=== PATIENT | male | born 1965 | race African-American/Black ===

== ENCOUNTER 2017-02-17 20:27 | Emergency (ER) | payer OTHER ==
[2017-02-17 20:53] VITALS: BP 153/101; PULSE 116; TEMP 98.4; BMI 35.9
[2017-02-17] MEDS ORDERED: LEVOFLOXACIN 500 MG TABLET (FP) PO ONE (21:20)
[2017-02-17] MEDS ORDERED: SILVER SULFADIAZINE 1% TOP CREAM 50 GM JAR TP ONE ×2 (21:20→21:29)
[2017-02-17] MEDS ORDERED: TETANUS AND DIPHTHERIA TOXOID 0.5 ML DISP.SYRIN IM ONE (21:20)
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
[2017-02-17] MEDS ORDERED: IBUPROFEN 400 MG TABLET (FP) PO ONE ×2 (21:25→21:30)
[2017-02-17] MEDS ORDERED: LEVOFLOXACIN 500 MG TABLET (FP) ONE (21:30)
== END 2017-02-17 22:37 | disposition home or self-care (01) ==
LOC: JER 20:27
PROC: 2W2SX4Z Dressing of Right Foot using Bandage (ICD-10-PCS; principal; 2017-02-17)
PROC: 3E0234Z Introduction of Serum, Toxoid and Vaccine into Muscle, Percutaneous Approach (ICD-10-PCS; 2017-02-17)
PROC: 2W2SX4Z Dressing of Right Foot using Bandage (ICD-10-PCS; 2017-02-17)
DX: T25.222A Burn of second degree of left foot, initial encounter (principal); T25.221A Burn of second degree of right foot, initial encounter; T31.0 Burns involving less than 10% of body surface; X02.8XXA Other exposure to controlled fire in building or structure, initial encounter; Y93.89 Activity, other specified; Y92.89 Other specified places as the place of occurrence of the external cause
CPT/HCPCS: 99282-25

== ENCOUNTER 2017-02-25 13:09 | Emergency (ER) | payer OTHER ==
[2017-02-25 13:13] VITALS: BP 140/92; PULSE 82; TEMP 98.2; BMI 35.3
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
== END 2017-02-25 14:23 | disposition home or self-care (01) ==
LOC: JERFT 13:09
DX: T25.222D Burn of second degree of left foot, subsequent encounter (principal); X02 Exposure to controlled fire in building or structure
CPT/HCPCS: 99281-25